=== PATIENT | female | born 1980 | race Caucasian/White ===

== ENCOUNTER 2024-06-13 09:26 | Outpatient (CLI) | payer OTHER, SELFPAY ==
[2024-06-14 14:46] LABS: HPV Source Cervix; HPV, High Risk by TMA Not Detected
[2024-06-22 14:04] LABS: Pap Test Reviewed by Path Done
== END 2024-06-13 09:27 | disposition home or self-care (01) ==
PROVIDERS: PCP Family Medicine; Visit Provider Obstetrics & Gynecology
DX: Z12.4 Encounter for screening for malignant neoplasm of cervix (principal); Z13.1 Encounter for screening for diabetes mellitus; Z13.6 Encounter for screening for cardiovascular disorders; Z13.29 Encounter for screening for other suspected endocrine disorder
CPT/HCPCS: 80053; 80061; 82306; 84443; 87624; 87625; 88141; 88142

== ENCOUNTER 2024-07-04 10:14 | Outpatient (CLI) | payer OTHER, SELFPAY ==
[2024-07-16 14:05] LABS: Pap Test Reviewed by Path Done
== END 2024-07-04 10:15 | disposition home or self-care (01) ==
LOC: NFLDREF 10:15
PROVIDERS: PCP Family Medicine; Visit Provider Obstetrics & Gynecology
DX: Z12.4 Encounter for screening for malignant neoplasm of cervix (principal)
CPT/HCPCS: 84450; 84460; 88141; 88142

== ENCOUNTER 2024-09-07 13:42 | Outpatient (CLI) | payer OTHER, SELFPAY ==
--- NOTE | 2024-09-07 14:00 | CRLHL7_ITS ---
For Patients: As a result of the Cures Act, medical imaging exams and procedure reports are released immediately into your electronic medical record. You may view this report before your referring provider. If you have questions, please contact your health care provider. INDICATION: BILATERAL SCREENING MAMMOGRAM, ASYMPTOMATIC 43 Y/O FEMALE COMPARISON: 08/08/2020 TECHNIQUE: Digital mammogram in CC and MLO projections including computer-aided detection (CAD) and tomosynthesis. BREAST COMPOSITION: There are scattered areas of fibroglandular density. FINDINGS: No suspicious findings. ASSESSMENT: BI-RADS 2 Benign RECOMMENDATION: Annual screening mammogram. A lay language report of this examination will be provided to the patient. Dictated by: Shahzad Recio MD @ 09/10/2024 09:36:51 (Electronically Signed)
== END 2024-09-07 13:43 | disposition home or self-care (01) ==
LOC: MAMMO 13:43
PROVIDERS: PCP Family Medicine; Visit Provider Obstetrics & Gynecology
DX: Z12.31 Encounter for screening mammogram for malignant neoplasm of breast (principal)
CPT/HCPCS: 77063; 77067